=== PATIENT | male | born 1960 | race Caucasian/White ===

== ENCOUNTER 2016-07-30 15:49 | Inpatient (IN) | payer MEDICARE ==
--- NOTE | ~2016-07-30 | CO ---
Unit #: [id number] #: [id number] Patient: WILLOW MIRANDA [id number] [address] [place], [place] [address] [id number] I MR#: [id number] NAME: WILLOW MIRANDA. ROOM: [facility] Age: 56 Sex: M Admission Date: 07/31/2016 : 1960 Attending Physician: Tonya Figueredo M.D. Primary Care Physician: Gurjit Navarro Jr., M.D. Consultation Date: 07/31/2016 CONSULTATION REPORT REASON FOR CONSULTATION Possible pilonidal abscess. CONSULTING PHYSICIAN HIPS Physician. HISTORY OF PRESENT ILLNESS Thank you very much for asking us to see Mr. Miranda. He is a very 56-year-old white male, who has a history of HIV. He came to the emergency room for evaluation of pain in the area of central gluteal crease. He states he is having quite a bit of pain. He did have a pilonidal cyst many years ago that required incision and drainage. He presents at this time for further evaluation and treatment. PAST MEDICAL HISTORY Hypertension, HIV. PAST SURGICAL HISTORY History of excision of pilonidal cyst and a hernia repair. MEDICATIONS Please see med rec sheet. ALLERGIES Haldol, aspirin. SOCIAL HISTORY Positive tobacco use. No alcohol use. FAMILY HISTORY Noncontributory. REVIEW OF SYSTEMS Negative except for above. IMMUNIZATION STATUS Unknown. PHYSICAL EXAMINATION GENERAL: Well-developed white male, in no acute distress. VITAL SIGNS: Afebrile. Vital signs stable. BACK: No CVA or spinous tenderness. NECK: Supple. No thyromegaly or adenopathy. Unit #: [id number] #: [id number] Patient: WILLOW MIRANDA LUNGS: Clear to auscultation bilaterally. HEART: Regular rate and rhythm. ABDOMEN: Flat, soft, nontender. SKIN: Reveals scaliness diffusely all over the patient's skin and crossing his forehead, chest, back, and all extremities. Examination of central gluteal crease revealed some excoriation of the inner gluteal crease, but no obvious pilonidal abscess was seen. No obvious purulent drainage was able to be expressed. DIAGNOSTIC STUDIES LABORATORY RESULTS: Glucose 85, BUN 28, creatinine 1.4. White count is 3.8 with hemoglobin of 11.1. IMAGING STUDIES: CT scan of the abdomen shows no fluid collection. IMPRESSION Severe scaliness and flaking of the skin. He was seen by Dermatology. The wound crease was now sent for excoriation of the inner gluteal crease. We will follow along with you and proceed accordingly. At this point in time, we do not see any obvious pilonidal abscess, but we will continue to follow. Dictated by... Huy Milton M.D. HOLLY/josfeina TD: 08/02/2016 01:06 JOB #: [id number] CC: [facility] CONSULTATION REPORT Page 1 of 1 X Huy Milton MD X CONSULTATION REPORT
--- NOTE | ~2016-07-30 | CT4 ---
[facility] A Service of [facility] RADIOLOGY TEXT RESULTS PATIENT: WILLOW MIRANDA LOCATION: [facility] 466-01 : [birth year] UNIT #: [id number] AGE: [address]: Tonya Figueredo MD SEX: M ORDER DR: [id number] [facility] [address] [place], [place] [address] [id number] I MR#: [id number] Acc #: [id number] NAME: WILLOW MIRANDA : 1960 SEX: M STUDY DATE/TIME: 07/30/2016 18:18 UNIT: [id number] PCU ROOM: [facility] STUDY DESCRIPTION: CT Abd and Pelv Wo Cont Attending Physician: Tonya Figueredo M.D. Ordering Physician: Willian Aguilar D.O. Primary Care Physician: Gurjit Navarro Jr., M.D. MEDICAL IMAGING REPORT This report is preliminary unless electronic signature is present EXAM CT of the abdomen and pelvis without contrast media, 07/30/2016 COMPARISON 12/10/2012 HISTORY Buttock wound for 6 months. TECHNIQUE Transaxial imaging of the abdomen and pelvis was performed without contrast media. This CT exam was performed with one or more of the following radiation dose reduction techniques: automatic exposure control, adjustment of mA and/or kV according to patient size, and iterative reconstruction. COMPARISON 12/10/2012 FINDINGS Scans through the lung bases show a calcified granuloma in the right base. Scans through the liver are unremarkable. There are multiple gallstones. Spleen is enlarged. Adrenal glands and pancreas are normal. Both kidneys are normal. Small periumbilical hernia is seen. No dilated or thickened loops of bowel are identified. No pelvic masses or fluid collections are seen. Multiple small nodes are identified in the soft tissues over both buttocks. In the gluteal cleft in the right buttock there is some soft tissue swelling and a small subcutaneous nodule measuring about 11.0 mm. Underlying bony elements appear intact. CONCLUSION 1. Cholelithiasis. [facility] A Service [facility] RADIOLOGY TEXT RESULTS PATIENT: WILLOW MIRANDA LOCATION: [facility] 466-01 : [birth year] UNIT #: [id number] AGE: [address]: Tonya Figueredo MD SEX: M ORDER DR: 2. No acute intraabdominal findings. 3. Multiple small nodes in the buttock regions bilaterally. Question raised of subcutaneous nodule along the right gluteal fold measuring about 11.0 mm which also could represent merely a node. No fluid collections are seen. No bone erosion or destruction identified. Dictated by... Lew Vu M.D. THIS IS AN ELECTRONICALLY VERIFIED REPORT Lew Vu M.D. at 08/01/2016 3:10 PM Sasha TD: 07/31/2016 09:13 JOB #: [id number] MEDICAL IMAGING REPORT Page 1 of 1 COPY
--- NOTE | ~2016-07-30 | DS ---
Unit #: [id number] #: [id number] Patient: WILLOW MIRANDA [id number] [address] [address] [id number] I MR#: [id number] NAME: WILLOW MIRANDA. ROOM: [facility] Age: 56 Sex: M Admission Date: 07/31/2016 : 1960 Discharge Date: 08/01/2016 Attending Physician: Tonya Figueredo M.D. Primary Care Physician: Gurjit Nvaarro Jr., M.D. DISCHARGE SUMMARY JOB NOTE: ADDENDUM ADDENDUM Please note, the patient did have CD4 count drawn during hospitalization, has returned significantly low at 27. It is my understanding the patient has been seen by hospice in the past with plans to initiate hospice care when CD4 count was less than 50. The patient informed to my staff that CD4 count was too high for evaluation previously; however, it now appears that CD4 count is appropriate and hospice can be consulted if he so desires on an outpatient basis by [facility]. Dictated by... Tonya Figueredo M.D. ANA/josefina TD: 08/03/2016 07:40 JOB #: [id number] DISCHARGE SUMMARY Page 1 of 1 X Tonya Figueredo MD DISCHARGE SUMMARY
--- NOTE | ~2016-07-30 | DS ---
Unit #: [id number] #: [id number] Patient: WILLOW MIRANDA [id number] [address] [address] [id number] I MR#: [id number] NAME: WILLOW MIRANDA. ROOM: [facility] Age: 56 Sex: M Admission Date: 07/31/2016 : 1960 Discharge Date: 08/01/2016 Attending Physician: Tonya Figueredo M.D. Primary Care Physician: Gurjit Navarro Jr., M.D. DISCHARGE SUMMARY PRIMARY CARE PHYSICIAN [facility]. PRINCIPAL DIAGNOSES 1. Gluteal cellulitis. 2. Severe seborrheic dermatitis. 3. Generalized eczema with severe stasis dermatitis. 4. Acquired immune deficiency syndrome with unknown CD4 count. 5. Chronic kidney disease stage 3 with baseline creatinine approximately 1.2, question whether this is acquired immune deficiency syndrome related. 6. Pancytopenia secondary to presumed acquired immune deficiency syndrome. 7. Intertrigo. 8. Anxiety. 9. Benign prostatic hypertrophy. 10. Chronic pain syndrome, maintained on narcotics. 11. Dry eye. 12. Tobaccoism. CONSULTANTS Dr. Greenfield, Dermatology; Dr. Milton, General Surgery. PROCEDURES CT scan of abdomen and pelvis without contrast on 07/30/2016 with a calcified granuloma in the right lung base. No evidence of pelvic mass or fluid collection. Multiple small nodes in the soft tissues over both buttocks, but no evidence of abscess. CLINICAL HISTORY AND HOSPITAL COURSE Mr. Vance is a 56-year-old male with a history of AIDS with unknown CD4 count, who presents to the emergency department due to increasing pain and draining lesion on his buttocks. Please refer to H and P for further details. CT scan of the abdomen and pelvis did not reveal any abscess in the emergency department. The patient did have significant cellulitis and he was subsequently admitted. General surgery was consulted for their opinion and they agreed, they do not feel there was any abscess in the region; however, the patient has multiple skin abnormalities including some intertrigo, some significant stasis dermatitis, some eczema, severe seborrheic dermatitis for which Dermatology was consulted and several creams were initiated. This morning, the patient's cellulitis of the gluteal region is significantly improved. He has not had any white blood cell count elevation during hospitalization nor they had any fever; however, his age which is likely Unit #: [id number] #: [id number] Patient: WILLOW MIRANDA quite advanced limits the ability to evaluate this, but clinically the wound looks much better. I am going to change him to oral Augmentin. The patient has not been taking his highly active anti-retroviral therapy for the last several years. I asked him if he would like to be re-evaluated for entry into the [facility] or by another HIV specialist, he states he is not interested "they can't help me and only the boosters work." CD4 count has been drawn and is currently pending, but I anticipate that this is significantly low. I am concerned about the patient's ability to care for himself at home, but he is ambulating okay and does not really require subacute rehab. Thus, I am going to discharge him back home under the care of home health and [facility]. I would suggest further discussion with the patient regarding end of life care given anticipate that this is coming rather soon and pain is one of his significant complaints. DISCHARGE CONDITION Stable. DISCHARGE STATUS Discharged home with home. DISCHARGE MEDICATIONS T/Quoc topically to scalp daily; triamcinolone 0.1% cream b.i.d. to legs, feet, and dry skin on trunk and extremities; clobetasol propionate 0.05% topical solution to scalp b.i.d.; Bactroban t.i.d. to buttocks; Desyrel 50 mg each evening p.r.n. for sleep; Diflucan 100 mg daily; Seroquel 150 mg at bedtime; Domeboro one packet t.i.d. to buttock soak for 20 minutes; Valium 5 mg b.i.d.; metoprolol tartrate 25 mg b.i.d.; prazosin 2 mg b.i.d.; azithromycin 500 mg b.i.d.; ranitidine 300 mg b.i.d.; Restasis one drop to both eyes daily; finasteride 5 mg daily; fentanyl patch 50 mcg q.48 hours, this is a home medication; Percocet 7.5/325 mg one tablet q.4 hours p.r.n. for pain; Klor-Con 20 mEq daily; Celebrex 200 mg daily, note this is a dose increase given the patient's chronic kidney disease, Bactrim DS one tablet b.i.d.; Augmentin 875 mg p.o. b.i.d. for 8 days. DISCHARGE INSTRUCTIONS The patient can follow a regular diet. He can increase activity as tolerated. He should refrain from any further tobacco use. In regard to his wound care in his buttocks, he should do Domeboro soaks 20 minutes t.i.d. to buttocks and follow soaks with Bactroban ointment t.i.d., clobetasol propionate solution b.i.d. to scalp, T/Quoc shampoo daily to scalp, triamcinolone b.i.d. to rash on legs and feet and dry skin. FOLLOWUP The patient will be followed by [facility] within the next several days. Again, I would encourage perhaps discussion regarding end of life hospice care given he is not going to treat his underlying AIDS. Time spent on discharge 37 minutes. Dictated by... Tonya Figueredo M.D. [facility]/josefina Unit #: [id number] #: [id number] Patient: WILLOW MIRANDA TD: 08/02/2016 02:02 JOB #: [id number] DISCHARGE SUMMARY Page 1 of 1 X Tonya Figueredo MD DISCHARGE SUMMARY
--- NOTE | ~2016-07-30 | HP ---
Unit #: [id number] #: [id number] Patient: WILLOW MIRANDA [id number] [address] [address] [id number] I MR#: [id number] NAME: WILLOW MIRANDA. ROOM: [id number] Age: 56 Sex: M Admission Date: 07/30/2016 : 1960 Attending Physician: Daysi Huerta M.D. Primary Care Physician: Gurjit Navarro Jr., M.D. HISTORY AND PHYSICAL CHIEF COMPLAINT Wound on buttocks. HISTORY OF PRESENT ILLNESS The patient is 57-year-old male with history of HIV diagnosed back in the , noncompliant with HIV medications for the last two years. The last CD4 count was in the range of 60s and the viral load in millions. He presented to the emergency room. He was sent by for evaluation and treatment for the wound on the buttocks. The patient stated that the patient has a wound on the buttocks for the last six months and was gradually progressing to the point that he is having some severe pain. The patient denies any fever or chills, nausea or vomiting. The patient stated the patient had a similar pilonidal cyst many years ago and that was taken care of. The patient was taking the antibiotics but it was not helping the wound in the buttocks. The patient is being admitted for the above reasons. The patient had a CT of the abdomen and pelvis that shows no fluid collections. PAST MEDICAL HISTORY Significant for: 1. Hypertension. 2. HIV. 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 PAST SURGICAL HISTORY 1. History of pilonidal cyst removal. 2. Hernia repair. HOME MEDICATIONS 1. Bactrim. 2. Trazodone. 3. Percocet. 4. Celebrex. 5. Valium. 6. Metoprolol. 7. Finasteride. 8. Diflucan. 9. Ranitidine. 10. Bactrim DS. 11. Zithromax. 12. K-Zaira. 13. Restasis. ALLERGIES Unit #: [id number] #: [id number] Patient: WILLOW MIRANDA 1. Haldol. 2. Aspirin. SOCIAL HISTORY He smokes two packs per day. Denies any alcohol or any illicit drug abuse. FAMILY HISTORY Reviewed and none. REVIEW OF SYSTEMS A 14-point review of systems performed and only pertinent positive findings as described above, remaining are negative. PHYSICAL EXAMINATION VITAL SIGNS: Temperature 97.6, pulse 83, respiratory rate 16, blood pressure 118/65, saturating 99% at room air. GENERAL: Patient is lying on the bed not in acute distress. HEENT: Atraumatic, normocephalic. He has a lot of hair flaking on the head. Pupils equal, round, and reactive to light and accommodation. Dry mucous membrane. Extraocular movements are intact. NECK: Supple. LUNGS: Clear to auscultation bilaterally. No rhonchi, no wheezing. HEART: Regular rate and rhythm. ABDOMEN: Soft, positive bowel sounds. BUTTOCK: The patient has purulent drainage per the wound consistent with a pilonidal cyst. EXTREMITIES: No cyanosis, no clubbing. NEUROLOGIC: Alert, awake, oriented. No gross focal motor deficit. DIAGNOSTIC STUDIES LABORATORY: Glucose 85, BUN 28, creatinine 1.4, sodium 138, potassium 4.3, chloride 107, bicarb 25, calcium 9.4, total protein 8.5, albumin 4.2, AST 34, ALT 24, alkaline phosphatase 122, lactic acid is 1.6. INR is 1. Troponin less than 0.05. WBC 3.8, hemoglobin 11.1, hematocrit 32.5, platelets 74. IMAGING: CT of the abdomen shows no fluid collection. ASSESSMENT AND PLAN 1. Buttock wound/pilonidal cyst. 2. HIV/AIDS. 3. Thrombocytopenia. PLAN 1. Admit patient as observation with telemetry. 2. Continue with IV antibiotics with clindamycin. 3. The patient received vancomycin and Zosyn in the emergency room. 4. We will check the wound cultures. 5. Will have the surgery evaluation for the pilonidal cyst repair. 6. Continue with the wound care. 7. Repeat the labs. 8. The patient is noncompliant with the HIV and is to follow with his PCP for adjusting medications. 9. Further recommendations will follow as more lab results become available. Unit #: [id number] #: [id number] Patient: RUTHWILLOW L Dictated by Yulisa Frias TD: 07/30/2016 20:40 JOB #: [id number] HISTORY AND PHYSICAL X X HISTORY AND PHYSICAL
[~2016-07-30 15:49] MED LIST: BACTRIM DS TABL1 TA1 PO; PYRIDIUM PO
[2016-07-30 15:55] LABS: BASOPHIL% 1.1 % (0-2.5); EOSINOPHIL# 0.8 X10e3 (0-0.7); EOSINOPHIL% 19.9 % (0.0-7.0); HEMATOCRIT 32.5 % (38.0-50.0); HEMOGLOBIN 11.1 gm/dL (13.0-16.0); LYMPHOCYTE# 0.8 X10e3 (1.0-3.5); LYMPHOCYTE% 20.9 % (17.0-45.0); MEAN CELL VOLUME 92.6 FL (83-96); MEAN CORPUSCULAR HEMOGLOBIN 31.7 PG (28-34); MEAN CORPUSCULAR HGB CONC 34.3 g/dL (30-36); MEAN PLATELET VOLUME 9.3 FL (6.5-11.5); MONOCYTE# 0.4 X10e3 (0-1.0); MONOCYTE% 9.5 % (3.0-12.0); NEUTROPHIL# 1.9 X10e3 (1.5-7.1); NEUTROPHIL% 48.6 % (40-75); RED BLOOD COUNT 3.51 X10e (3.90-5.60); RED CELL DISTRIBUTION WIDTH 13.8 % (11.0-15.5); WHITE BLOOD COUNT 3.8 X10e3 (4.0-10.5)
[2016-07-30 15:56] LABS: POC - CKMB 2.7 ng/mL (0.0-7.9); POC - TROPONIN <0.05 ng/mL (<=0.05)
[2016-07-30 16:09] LABS: PARTIAL THROMBOPLASTIN TIME 26.2 SECONDS (23.5-31.3); PROTHROMBIN TIME (PATIENT) 10.6 SECONDS (9.6-11.5)
[2016-07-30 16:16] LABS: ALBUMIN SERUM 4.2 g/dL (3.5-5.0); BILIRUBIN, DIRECT 0.1 mg/dL (0.0-0.2); BILIRUBIN,INDIRECT 0.3 mg/dL (0.0-0.9); BILIRUBIN,TOTAL 0.4 mg/dL (0.2-2.0); CALCIUM SERUM 9.4 mg/dL (8.4-10.2); CREATININE SERUM 1.4 mg/dL (0.6-1.4); GLOM FILT RATE Estimated 56.1 mL/min (>60); POTASSIUM 4.3 mmol/L (3.5-5.1); PROTEIN TOTAL SERUM 8.5 g/dL (6.0-8.3)
[2016-07-30 16:23] LABS: DIFF IND YES; PLATELET COUNT 74 X10e3 (140-420)
[2016-07-30 16:28] LABS: OVALOCYTES PRESENT; PLATELET ESTIMATE DECREASED (NORMAL); POIKILOCYTOSIS SL
[2016-07-30] MEDS ORDERED: PERCOCET 7.5-31 EACH PO (17:09)
[2016-07-30] MEDS ORDERED: DESYREL50 MG PO (17:09)
[2016-07-30] MEDS ORDERED: DIAZEPAM PO (17:10)
[2016-07-30] MEDS ORDERED: CELECOXIB200 MG PO (17:10)
[2016-07-30] MEDS ORDERED: FINASTERIDE5 M1 PO (17:11)
[2016-07-30] MEDS ORDERED: METOPROLOL TAR25 MG PO (17:11)
[2016-07-30] MEDS ORDERED: BACTRIM DS TABL1 TA2 PO (17:12)
[2016-07-30] MEDS ORDERED: DIFLUCAN100 MG PO (17:12)
[2016-07-30] MEDS ORDERED: RANITIDINE HCL300 M1 PO (17:12)
[2016-07-30] MEDS ORDERED: KCL PO (17:13)
[2016-07-30] MEDS ORDERED: RESTASIS32 EA OU (17:13)
[2016-07-30] MEDS ORDERED: ZITHROMAX500 MG PO (17:13)
[2016-07-31 07:10] LABS: BASOPHIL% 0.7 % (0-2.5); EOSINOPHIL# 0.7 X10e3 (0-0.7); EOSINOPHIL% 19.7 % (0.0-7.0); HEMATOCRIT 28.4 % (38.0-50.0); HEMOGLOBIN 9.6 gm/dL (13.0-16.0); LYMPHOCYTE% 27.9 % (17.0-45.0); MEAN CELL VOLUME 92.3 FL (83-96); MEAN CORPUSCULAR HEMOGLOBIN 31.4 PG (28-34); MEAN PLATELET VOLUME 9.7 FL (6.5-11.5); MONOCYTE# 0.4 X10e3 (0-1.0); MONOCYTE% 11.2 % (3.0-12.0); NEUTROPHIL# 1.4 X10e3 (1.5-7.1); NEUTROPHIL% 40.5 % (40-75); PLATELET COUNT 60 X10e3 (140-420); RED BLOOD COUNT 3.07 X10e (3.90-5.60); RED CELL DISTRIBUTION WIDTH 13.8 % (11.0-15.5); WHITE BLOOD COUNT 3.5 X10e3 (4.0-10.5)
[2016-07-31 07:11] LABS: DIFF IND NO
[2016-07-31 07:26] LABS: BLOOD UREA NITROGEN 26 mg/dL (9-23); CALCIUM SERUM 8.7 mg/dL (8.4-10.2); CARBON DIOXIDE 25 mmol/L (22-31); CHLORIDE 106 mmol/L (100-111); CREATININE SERUM 1.3 mg/dL (0.6-1.4); GLOM FILT RATE Estimated ABOVE60 mL/min (>60); GLUCOSE FASTING 84 mg/dL (70-110); POTASSIUM 4.3 mmol/L (3.5-5.1); SODIUM 138 mmol/L (135-145)
[2016-07-31] MEDS ORDERED: SEROQUEL PO (22:50)
[2016-07-31] MEDS ORDERED: PRAZOSIN HCL2 MG PO (22:51)
[2016-08-01 03:51] LABS: HEMATOCRIT 28.8 % (38.0-50.0); HEMOGLOBIN 9.9 gm/dL (13.0-16.0); MEAN CELL VOLUME 91.6 FL (83-96); MEAN CORPUSCULAR HEMOGLOBIN 31.6 PG (28-34); MEAN CORPUSCULAR HGB CONC 34.5 g/dL (30-36); MEAN PLATELET VOLUME 10.5 FL (6.5-11.5); RED BLOOD COUNT 3.15 X10e (3.90-5.60); WHITE BLOOD COUNT 4.2 X10e3 (4.0-10.5)
[2016-08-01 04:15] LABS: BLOOD UREA NITROGEN 18 mg/dL (9-23); CALCIUM SERUM 9.2 mg/dL (8.4-10.2); CARBON DIOXIDE 24 mmol/L (22-31); CHLORIDE 109 mmol/L (100-111); CREATININE SERUM 1.2 mg/dL (0.6-1.4); GLOM FILT RATE Estimated ABOVE60 mL/min (>60); GLUCOSE FASTING 104 mg/dL (70-110); POTASSIUM 4.1 mmol/L (3.5-5.1); SODIUM 140 mmol/L (135-145)
[2016-08-01] MEDS ORDERED: AUGMENTIN875 MG PO (11:17)
[2016-08-01] MEDS ORDERED: TRIAMCINOLONE AC1 GM EXT (11:19)
[2016-08-01] MEDS ORDERED: CLOBETASOL 0.0560 GM TOP (11:22)
[2016-08-01] MEDS ORDERED: BACTROBAN15 GM TOP (11:23)
[2016-08-01] MEDS ORDERED: DOMEBORO PACKET1 PKT TOP (11:23)
[2016-08-02 17:27] LABS: CD4 % (PNL) 3 % (30-61)
== END 2016-08-01 16:10 | disposition home health service (06) | DRG 602 ==
LOC: CED 15:49 → CEDOF 19:34 → C3A PCU 07-31 13:40 → C4C 07-31 20:29
PROVIDERS: Emergency Medicine; Internal Medicine
DX: L03.317 Cellulitis of buttock (principal); B20 Human immunodeficiency virus [HIV] disease; N18.3 Chronic kidney disease, stage 3 (moderate); D69.6 Thrombocytopenia, unspecified; L05.91 Pilonidal cyst without abscess; F17.210 Nicotine dependence, cigarettes, uncomplicated; Z88.6 Allergy status to analgesic agent; L08.0 Pyoderma; B96.89 Other specified bacterial agents as the cause of diseases classified elsewhere; L21.9 Seborrheic dermatitis, unspecified; I12.9 Hypertensive chronic kidney disease with stage 1 through stage 4 chronic kidney disease, or unspecified chronic kidney disease; I87.2 Venous insufficiency (chronic) (peripheral); F41.9 Anxiety disorder, unspecified; G89.4 Chronic pain syndrome; N40.0 Benign prostatic hyperplasia without lower urinary tract symptoms; L30.4 Erythema intertrigo
CPT/HCPCS: 36415; 74176; 80048; 80076; 82553; 83605; 84484; 84630; 85025; 85027; 85610; 85730; 86361; 87040; 87070; 87077; 87186; 87205; 94760; 96365; 96367; 99285; J0295; J2543; J3370